=== PATIENT | male | born 1955 ===

== ENCOUNTER 2020-05-14 09:02 | Inpatient (IN) | payer SELFPAY ==
[2020-05-14] VITALS (10 sets, daily range): BP systolic 87–107; BP diastolic 43–64; PULSE 76–100; TEMP 99–100.4
[~2020-05-14] VITALS: Ht 195.6 cm; Wt 90.9 kg
[2020-05-14 09:36] LABS: HEMATOCRIT 50.7 % (42.0-52.0); MEAN CELL VOLUME 95 fl (80.0-100.0); MEAN CORPUSCULAR HEMOGLOBIN 32 pg (27.0-31.0); MEAN CORPUSCULAR HGB CONC 34 g/dl (33.0-37.0); MEAN PLATELET VOLUME 9.3 fl (7.4-10.4); PLATELET COUNT 265 K/mm3 (130-400); RED BLOOD COUNT 5.35 M/mm3 (4.20-5.60)
[2020-05-14 09:48] LABS: ALBUMIN 4.7 gm/dL (3.5-5.0); BILIRUBIN,TOTAL 1.1 mg/dL (0.0-1.0); CALCIUM 9.4 mg/dL (8.4-10.2); CREATININE, serum 1.07 (0.66-1.25); TOTAL PROTEIN 8.5 gm/dL (6.4-8.2)
[2020-05-14 10:05] LABS: BAND 4 % (0-10); LYMPHOCYTE 12 % (20.0-51.0); NEUTROPHILS 70 % (42.0-75.2); PLATELET ESTIMATE NORMAL (NORMAL)
--- NOTE | 2020-05-14 18:47 | NUR ---
Patient resting in bed post op. Minimal appetite. Denies nausea, he had a few bites of crackers & applesauce. Reports being thirsty. Refused SCDs. INT to Rac. Ivf and antibioitc to Lfa. Abdomen rounded & lap site bandaids intact. Mortin for Right hip pain complaints, reports he had been kicked by a cow in the past. Patient Vss on O2. Patient is a daily cigar smoker. He has had low grade fever. Blankets removed & air in room turned down. Will report off to night shift supervisor nurse
--- NOTE | 2020-05-14 20:00 | NUR ---
Patient resting in bed. Post op VSS. 3 lap sites to his abdomen with bandaids clean, dry. and intact. Fluids infusing to his left forearm. Patient refusing his SCDs. No other needs at this time. Call light is in reach.
[2020-05-15] VITALS (7 sets, daily range): BP systolic 85–123; BP diastolic 53–70; PULSE 76–85; TEMP 97.6–99
--- NOTE | 2020-05-15 01:29 | NUR ---
Patient's blood pressure dropped to 85/58. Patient is not symptomatic. Called Dr. Hastings and left a message. Fluids infusing and encouraged patient to drink plenty of fluids.
--- NOTE | 2020-05-15 05:06 | NUR ---
Patient's blood pressure is better. Patient has had a couple loose stools this morning. Ambulating to the bathroom independently. Patient has decided to put his SCDs on now.
[2020-05-15 06:26] LABS: BASO # 0.1 (0.0-0.2); BASO % 0.4 % (0.0-2.0); EOS % 0.3 % (0-4.0); GRAN # 10.7 (1.4-6.5); GRAN % 78.9 % (42.2-75.2); HEMATOCRIT 42.8 % (42.0-52.0); LYMPH # 1.3 (1.2-3.4); LYMPH % 9.4 % (20.0-51.0); MEAN CELL VOLUME 94 fl (80.0-100.0); MEAN CORPUSCULAR HEMOGLOBIN 32 pg (27.0-31.0); MEAN CORPUSCULAR HGB CONC 34 g/dl (33.0-37.0); MEAN PLATELET VOLUME 9.9 fl (7.4-10.4); MONO # 1.4 (0.1-0.6); MONO % 10.4 % (1.7-9.3); PLATELET COUNT 205 K/mm3 (130-400); RED BLOOD COUNT 4.56 M/mm3 (4.20-5.60); REDCELL DISTRIBUTION WIDTH-CV 14.2 % (11.5-14.5)
[2020-05-15 06:38] LABS: HEMOGLOBIN 14.6 g/dl (13.5-18.0)
--- NOTE | 2020-05-15 08:00 | NUR ---
Assessment completed, alert/oriented, vital signs stable, very low grade temp elevation last night, WBC did go up to 15.9 this morning/ Levaquin has been added to EMAR by physician, patient reports moderate pain but overall is controlled, abdomen is soft and BS+, reprots passing gas but no BM yet, TYREL drain has milky/ Purulent drainage and a moderate amount documented, he has been up with assistance and doing well, heart RRR, lungs CTA/ no resp.difficulty, encouraged deep breathing and use of IS as ordered, he is sitting at edge of the bed and ate breakfast, fsbs was 59 this morning/ Levemir given but held Novolog, denies other needs at this time
[2020-05-15 12:38] LABS: COLLECTION METHOD CLEAN CATCH
[2020-05-15 12:45] LABS: MUCOUS Present /lpf; PH 5 (5-8); SQUAMOUS EPITHELIAL None Seen /hpf; URINE APPEARANCE Hazy; URINE BACTERIA None Seen /hpf; URINE BILIRUBIN Negative (NEGATIVE); URINE BLOOD 1+ (NEGATIVE); URINE COLOR Amber; URINE GLUCOSE Negative (NEGATIVE); URINE KETONE Trace (NEGATIVE); URINE LEUKOCYTE ESTERASE Negative (NEGATIVE); URINE NITRATE Negative (NEGATIVE); URINE PROTEIN(semi-quant) 1+ (NEGATIVE); URINE RBC 0-2 /hpf; URINE UROBILINOGEN >=4.0 mg/dL (NEGATIVE)
--- NOTE | 2020-05-15 15:09 | NUR ---
Division Superintendent met with patient to discuss discharge planning. Patient's significant other, Leandra Villarreal (ph#[phone]) is at bedside and assisted patient in answering questions. Patient recently had pain medication and had difficulty keeping his eyes open. Patient lives in [place] and Leandra reports although they each have their own places, patient normally stays with her at her place. Patient does not have a primary care physician and did not seem interested in having SW assist with setting up primary care. PARTH discussed the [facility] as patient is self pay. Leandra advised that patient will 65 soon and hopes to get on Social Security and apply for Medicare. Patient uses [facility] [employer] on [address] for his medications. Patient does not use any DME and is independent with ADLS. Patient does not have Advance Directives. PARTH inquired about legal next of kin. Leandra advised patient is not , does not have children, and his parents are . Leandra states patient's siblings are not very involved with him. PARTH discussed DPOA-HC and Leandra is interested in obtaining form for patient. PARTH provided. Patient to return home upon discharge. SW will continue to follow as needed.
--- NOTE | 2020-05-15 19:50 | NUR ---
RECEIVED CHANGE OF SHIFT REPORT FROM DAY SHIFT NURSE.
--- NOTE | 2020-05-15 20:00 | NUR ---
PATIENT DENIES CHEST PAIN/SOA/NAUSEA AT THIS TIME. IVF INFUSING WITH NO PROBLEMS.
[2020-05-16 00:26] VITALS: BP 112/68; PULSE 78; TEMP 98.6
[2020-05-16 05:16] VITALS: BP 110/71; PULSE 73; TEMP 98.1
[2020-05-16 06:45] LABS: BASO # 0.1 (0.0-0.2); BASO % 0.4 % (0.0-2.0); EOS # 0.2 (0.0-0.7); EOS % 1.9 % (0-4.0); GRAN # 9.1 (1.4-6.5); HEMOGLOBIN 14.5 g/dl (13.5-18.0); LYMPH # 1.7 (1.2-3.4); LYMPH % 13.7 % (20.0-51.0); MEAN CELL VOLUME 94 fl (80.0-100.0); MEAN CORPUSCULAR HEMOGLOBIN 32 pg (27.0-31.0); MEAN CORPUSCULAR HGB CONC 34 g/dl (33.0-37.0); MONO # 1.3 (0.1-0.6); MONO % 10.5 % (1.7-9.3); PLATELET COUNT 218 K/mm3 (130-400); RED BLOOD COUNT 4.56 M/mm3 (4.20-5.60); REDCELL DISTRIBUTION WIDTH-CV 14.2 % (11.5-14.5)
[2020-05-16 07:18] VITALS: BP 110/75; PULSE 72; TEMP 98.3
--- NOTE | 2020-05-16 07:38 | NUR ---
CHANGE OF SHIFT REPORT GIVEN TO DAY SHIFT NURSE, PHYLLIS PATEL.
--- NOTE | 2020-05-16 08:00 | NUR ---
Pt resting with eyes closed, even non labored breathing
--- NOTE | 2020-05-16 10:28 | NUR ---
Dr Hastings in to see patient, new orders. Assisted patient to the restroom. He was wanting a lot of assistance, but after assessing, he did not require the amount he was expecting. He was then able to get up with less assist than he was originally expecting. When asking him about pain, rating on a scale from 0-10, he stated 23. I then re-educated about the scale with 10 being the worst pain ever, he then said "well my scale goes to 23". Informed patient that when he was done using the restroom, he would be going on a walk. Informed him to use his call light
--- NOTE | 2020-05-16 11:00 | NUR ---
Pt has been up and ambulated a short distance in the watson. Bowel sounds are hypoactive and abdomin is distended. Told him to slow down on his oral intake which he nodded his head. Pain medication given, pt resting
[2020-05-16 12:00] VITALS: BP 117/71; PULSE 69; TEMP 97.2
--- NOTE | 2020-05-16 13:54 | NUR ---
Pt resting with eyes closed even non labored breathing
--- NOTE | 2020-05-16 15:33 | NUR ---
Report given to JORGE Hough. Assisted pt to the restroom at this time, gave him his call light
--- NOTE | 2020-05-16 16:02 | NUR ---
Patient requested to complete DPOA-HC form. Patient appointed his friend, Francisca Olvera and verbalized understanding of what he is signing. PARTH and RNSri provided witness signature. PARTH provided original and copies to patient then placed copy in patient's chart.
[2020-05-16 16:13] VITALS: BP 118/70; PULSE 66; TEMP 97.7
--- NOTE | 2020-05-16 17:18 | NUR ---
Patient sitting up in bed, visitor at the bedside. Denies pain, reports discomfort in abdomen. Patient had a BM and said he felt better. Walked the hallway with nursing staff and tolerated well. Want to go home soon. No further needs expressed from the patient. Call light within reach
--- NOTE | 2020-05-16 19:36 | NUR ---
END OF SHIFT REPORT RECEIVED FROM DAY SHIFT NURSE. PT RESTING IN BED WATCHING TV. IV FLUIDS OF D5NS WITH 20MEQ K+ INFUSING AT 100ML/HR IN L FA. DENIES ANY C/O DISCOMFORT AT PRESENT. CALL LIGHT IN REACH.
--- NOTE | 2020-05-16 20:19 | NUR ---
PT SHIFT ASSESSMENT COMPLETE. PT C/O HEART BURN, STOMACH UPSET. ZOFRAN 4MG IV GIVEN SLOW IV PUSH. DENIES PAIN, BUT WILL INCREASE TO 4 WITH MOVEMENT. PT WANTS TO GO FOR A WALK PRIOR TO GOING TO BED. IVF CONTINUE TO INFUSE AT 100ML/HR. BS ARE HYPOACTIVE. ABDOMEN SLIGHTLY DISTENDED AND SOFT. CALL LIGHT IN REACH. BED IN LOW POSITION.
[2020-05-16 20:22] VITALS: BP 124/75; PULSE 69; TEMP 97.7
[2020-05-17 00:20] VITALS: BP 120/65; PULSE 75; TEMP 97.8
[2020-05-17 06:39] LABS: BASO # 0.1 (0.0-0.2); BASO % 0.5 % (0.0-2.0); EOS # 0.4 (0.0-0.7); EOS % 4.1 % (0-4.0); GRAN % 63.6 % (42.2-75.2); HEMATOCRIT 39.6 % (42.0-52.0); HEMOGLOBIN 13.1 g/dl (13.5-18.0); LYMPH # 1.9 (1.2-3.4); LYMPH % 19.7 % (20.0-51.0); MEAN CELL VOLUME 97 fl (80.0-100.0); MEAN CORPUSCULAR HEMOGLOBIN 32 pg (27.0-31.0); MEAN CORPUSCULAR HGB CONC 33 g/dl (33.0-37.0); MEAN PLATELET VOLUME 9.9 fl (7.4-10.4); MONO # 1.1 (0.1-0.6); MONO % 11.8 % (1.7-9.3); PLATELET COUNT 212 K/mm3 (130-400); RED BLOOD COUNT 4.09 M/mm3 (4.20-5.60); REDCELL DISTRIBUTION WIDTH-CV 14.1 % (11.5-14.5)
[2020-05-17 07:00] LABS: ALBUMIN 3.1 gm/dL (3.5-5.0); BILIRUBIN,TOTAL 0.6 mg/dL (0.0-1.0); CALCIUM 7.8 mg/dL (8.4-10.2); CREATININE, serum 0.91 (0.66-1.25); POTASSIUM 4.1 mmol/L (3.4-5.0)
--- NOTE | 2020-05-17 07:41 | NUR ---
DR KENDRICK NOTIFIED OF PT C/O HEARTBURN/INDIGESTION. ORDER RECEIVED. PROTONIX 40MG IV GIVEN AND MYLANTA 15ML PO GIVEN. NORCO GIVEN PER PT REQUEST. AMBULATES IN [place]ZO X 3 DURING THIS SHIFT WITH USE OF WALKER. CALL LIGHT IN REACH.
[2020-05-17 08:10] VITALS: BP 127/78; PULSE 65; TEMP 98.1
--- NOTE | 2020-05-17 08:51 | NUR ---
PT UP AMBULATING HALLS WITH SBAX1. AM MEDS GIVEN ORDERED. PT C/O REFLUX PROTONIX GIVEN SCHEDULED. VSS. WANT AD RECEIVER REPORTING THAT PT HAS HAD SEVERAL SM BM OVER LAST 24 HR PERIOD. PT IS A/O X4, DENIES FURTHER NEEDS AT THIS TIME.
[2020-05-17 11:07] VITALS: BP 129/72; PULSE 66; TEMP 98.3
--- NOTE | 2020-05-17 11:30 | NUR ---
PT UP AMBULATING IN ALONZO. RETURNED TO ROOM VOIDED AND SM BM. RETURNED TO BED.
[2020-05-17 15:50] VITALS: BP 133/70; PULSE 67; TEMP 97.4
[2020-05-17 19:52] VITALS: BP 147/79; PULSE 71; TEMP 98.9
--- NOTE | 2020-05-17 19:54 | NUR ---
FLUIDS CAPPED. PT AMBULATING IN HALLWAY WITH WALKER, GAIT STEADY.
--- NOTE | 2020-05-17 21:00 | NUR ---
TAKES SCHEDULED HS MED, FLAGYL PO. ABD DISTENDED, SOFT. LAP SITES DRY TO ABD. NO FLATUS AT THIS TIME. NO NAUSEA. DENIES NEED FOR PAIN MEDS. IVF CAPPED, SL TO RIGHT AC, FLUSHES WELL.
[2020-05-17 23:18] VITALS: BP 146/73; PULSE 74; TEMP 98
[2020-05-18 03:48] VITALS: BP 142/68; PULSE 74; TEMP 98.3
--- NOTE | 2020-05-18 05:54 | NUR ---
IV SITE DC'D D/T LEAKING. URINE REMAINS DK YELLOW 300CC EMPTIED. REPORTS NO FLATUS BUT IS BELCHING. AM MED GIVEN.
--- NOTE | 2020-05-18 05:59 | NUR ---
PASSED FLATUS AT THIS TIME.
[2020-05-18 07:25] VITALS: BP 122/68; PULSE 71; TEMP 98.6
--- NOTE | 2020-05-18 07:31 | NUR ---
Patient sleeping in recliner, easily awakened with verbal command. A&Ox3. VSS. No IV access. Denies pain. Abdomen rounded, soft. No further needs expressed from the patient. Call light within reach
[2020-05-18 11:00] VITALS: BP 135/71; PULSE 68; TEMP 98.5
[2020-05-18 15:03] VITALS: BP 117/82; PULSE 69; TEMP 99.3
--- NOTE | 2020-05-18 17:39 | NUR ---
Patient has been walking the hallway with walker and tolerating well. Denies pain, but reporting not eating as much. Nursing staff encouraging patient to increase PO intake. Patient hoping to go home tomorrow. No further needs expressed from the patient. Call light within reach
[2020-05-18 21:12] VITALS: BP 131/68; PULSE 67; TEMP 98.3
--- NOTE | 2020-05-18 21:15 | NUR ---
PT IN BED, AWAKENED FOR HS MED. DENIES NEEDS. NO IV SITE. LAP SITES DRY TO ABD. VOIDING AND PASSING STOOL WITHOUT PROBLEM.
[2020-05-19 00:30] VITALS: BP 108/78; PULSE 67; TEMP 98.1
[2020-05-19 04:00] VITALS: BP 104/50; PULSE 64; TEMP 99.1
--- NOTE | 2020-05-19 04:29 | NUR ---
OFFERED PAIN MEDS TO PT, HE REPORTS WANTING TO WAIT TO SEE WHAT PT HAS TO SAY TODAY. EMPTIED URINAL AT THIS TIME. ICE PACK REPLACED TO RIGHT KNEE
--- NOTE | 2020-05-19 04:30 | NUR ---
DENIES NEEDS AT THIS TIME.
--- NOTE | 2020-05-19 06:56 | NUR ---
Pt doing well this morning. He states that he is hoping to go home. Minimal pain complaints and verbalizes that he is eating okay and using the restroom with no problems. He stated that he was going to go for a walk shortly. Will continue to monitor
[2020-05-19 08:32] VITALS: BP 133/76; PULSE 75; TEMP 97.5
[2020-05-19 09:27] LABS: BASO # 0.1 (0.0-0.2); BASO % 0.5 % (0.0-2.0); EOS # 0.3 (0.0-0.7); EOS % 2.4 % (0-4.0); GRAN # 7.4 (1.4-6.5); HEMATOCRIT 42.9 % (42.0-52.0); HEMOGLOBIN 14.9 g/dl (13.5-18.0); LYMPH # 1.7 (1.2-3.4); LYMPH % 15.3 % (20.0-51.0); MEAN CORPUSCULAR HEMOGLOBIN 32 pg (27.0-31.0); MEAN CORPUSCULAR HGB CONC 35 g/dl (33.0-37.0); MEAN PLATELET VOLUME 9.6 fl (7.4-10.4); MONO # 1.4 (0.1-0.6); MONO % 13.3 % (1.7-9.3); PLATELET COUNT 262 K/mm3 (130-400); RED BLOOD COUNT 4.66 M/mm3 (4.20-5.60); REDCELL DISTRIBUTION WIDTH-CV 13.4 % (11.5-14.5)
[2020-05-19 09:32] LABS: MEAN CELL VOLUME 92 fl (80.0-100.0)
--- NOTE | 2020-05-19 10:30 | NUR ---
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 With the mention of a nurse roses were delivered to another patient which pleased Mr. Flood immensely. Patient thanked [employer] for offering God's blessings.
[2020-05-19 11:26] VITALS: BP 122/66; PULSE 70; TEMP 98.2
--- NOTE | 2020-05-19 12:58 | NUR ---
Pt continues to do well. He is independently walking in the halls, no pain complaints and is tolerating PO, VSS
[2020-05-19] MEDS ORDERED: LEVAQUIN 5500 MG/TA1 PO (14:54)
[2020-05-19] MEDS ORDERED: NORCO 325 MG-51 TAB PO (14:55)
[2020-05-19] MEDS ORDERED: FLAGYL500 MG PO (14:55)
--- NOTE | 2020-05-19 15:23 | NUR ---
Dr Hastings has been in to see patient, discharge orders wrote. Reviewed discharge instructions as well as prescriptions and follow up appointment. No questions, pt escorted out at this time.
== END 2020-05-19 15:24 | disposition home or self-care (01) | DRG 339 ==
LOC: COL.ER 09:02 → JCC 13:47
PROVIDERS: Emergency Medicine; ADMIT Surgery
PROC: 0DTJ4ZZ Resection of Appendix, Percutaneous Endoscopic Approach (ICD-10-PCS; principal; 2020-05-14 15:00)
DX: K35.32 Acute appendicitis with perforation, localized peritonitis, and gangrene, without abscess (principal); K56.7 Ileus, unspecified; F17.210 Nicotine dependence, cigarettes, uncomplicated; D72.829 Elevated white blood cell count, unspecified
CPT/HCPCS: A9284; C9113; G0378; J0330; J0692; J1100; J1170; J1650; J1956; J2405; J2704; J3010; J3480; J7120; Q9967